=== PATIENT | female | born 1975 | race Caucasian/White ===

== ENCOUNTER 2019-03-14 08:42 | Observation (INO) ==
--- NOTE | 2019-03-14 09:07 | EKG Report ---
Test Performed on : 03/14/2019 09:06:20 AM Test Reason : dizziness Blood Pressure : / mmHG Vent. Rate : 050 BPM Atrial Rate : 050 BPM P-R Int : 154 ms QRS Dur : 090 ms QT Int : 438 ms P-R-T Axes : 043 026 017 degrees QTc Int : 399 ms Sinus bradycardia. Otherwise normal ECG When compared with ECG of 15-MAY-2018 09:29, Vent. rate has decreased BY [address] no longer depressed in Lateral leads Nonspecific T wave abnormality no longer evident in Lateral leads QT has shortened Unconfirmed Result
--- NOTE | 2019-03-14 09:21 | PROVIDER DOCUMENTATION ---
HPI-General Adult - General Chief Complaint: Dizziness Stated Complaint: DIZZINESS Time Seen by Provider: 03/14/19 08:49 Source: patient Allergies/Adverse Reactions: Patient Allergies Allergy/AdvReac Type Severity Reaction Status Date / Time No Known Allergies Allergy Verified 03/14/19 09:06 Home Medications: Home Medication List Medication Instructions Recorded Confirmed Last Taken Type Losartan Potassium 100 mg PO QAM 05/15/18 03/14/19 03/14/19 History Gabapentin 100 mg PO BID 03/14/19 03/14/19 03/14/19 History Hydrochlorothiazide 12.5 mg PO QAM 03/14/19 03/14/19 03/14/19 History Hydrocodone/Acetaminophen 7.5 mg PO TID 03/14/19 03/14/19 03/14/19 History [Hydrocodone-Acetamin 7.5-325] Metoprolol Succinate 25 mg PO QAM 03/14/19 03/14/19 03/13/19 History Tizanidine HCl 4 mg PO QHS 03/14/19 03/14/19 03/13/19 History - History of Present Illness -Gen Adult Nature of Presenting Problems: Pt. is 43 yof that presents with c/o sudden onset of dizziness and left arm tingling while at work. She reports all she did was sit down and suddenly got this feeling. She states she thought she was going to pass out. Pt. reports nausea but denies any vomiting. She states she also might have a thyroid problem. Location of Pain/Injury: reports: none. denies: head, face, mouth, neck, chest, upper extremity, hand(s), abdomen, back, pelvis, genitalia, lower extremity, fe et, upper body, lower body, generalized, other Pain Radiation: reports: no radiation. denies: arm(s), back, buttocks, chest, epigastric, feet, groin, jaw, flank (L), legs (lower), LLQ, LUQ, neck, periumbilical, flank (R), RLQ, RUQ, shoulder(s), scapula, scrotal, sternal not ch, suprapubic, legs (upper), urethral, vaginal, other Quality of Pain: reports: none. denies: aching, pressure, tightness Severity: reports: moderate. denies: mild, severe Onset/Duration: reports: abrupt, just prior to arrival Timing: reports: improving. denies: intermittent, constant, getting worse Context/Activities at Onset: reports: light activity. denies: none, moderate activity, vigorous activity, recent emotional stress, recent physical stress, recent trauma history, possible bad food, cold exposure, eating, out of country travel, rest, sleep, sexual activity, other Modifying Factors: improves with: nothing Associated Symptoms: reports: dizziness, nausea. denies: denies symptoms, anxiety, arm pain, back/neck pain, chest pain, constipation, cough, diaphoresis, diarrhea, EENT symptoms, fatigue, fever/chills, genitourinary problems, headaches, heartburn, joint pain, loss of appetite, malaise, muscle aches, sinus congestion/drainage, rash, seizure, shortness of breath, sensory/motor loss, pain with inspiration, swelling/mass in abdomen, syncope, vomiting, weakness, trouble walking, other Similar Symptoms Previously?: Yes Recently seen or treated by another doctor?: No Review of Systems - Adult - REVIEW OF SYSTEMS - ADULT Constitutional: reports: no symptoms reported Eyes: reports: see HPI, blurred vision. denies: dry eyes, double vision, redness Ears, Nose, Mouth & Throat: reports: no symptoms reported Cardiovascular: reports: no symptoms reported Respiratory: reports: no symptoms reported Gastrointestinal: reports: see HPI, nausea. denies: hematemesis, diarrhea, vomiting Genitourinary: reports: no symptoms reported Musculoskeletal: reports: no symptoms reported Integumentary: reports: no symptoms reported Neurological: reports: see HPI, dizziness/vertigo, paresthesia. denies: headache/migraines, slurred speech, tremors Psychiatric: reports: no symptoms reported Past History - Adult - PAST MEDICAL HISTORY-ADULT Review of Records: reports: Old Records Reviewed, Nursing Assessment Review, Medications Reviewed, Social history reviewed & non-contributory. Major Childhood Illnesses: reports: denies history Cardiovascular: reports: HTN Respiratory: reports: denies history Gastrointestinal: reports: denies history Obstetrical/Gynecological: reports: denies history Genitourinary: reports: denies history Musculoskeletal: reports: denies history Neurological: reports: denies history Psychiatric: reports: denies history Endocrine/Immune: reports: denies history Other Conditions: reports: denies history - PRIOR SURGERIES/PROCEDURES Surgical/Procedure History: reports: reviewed, not pertinent - IMMUNIZATION STATUS Childhood Immunizations: See Nurse Assessment Flu Vaccine: See Nurse Assessment - FAMILY HISTORY Family History: reviewed, not pertinent - SOCIAL HISTORY Smoking: cigarettes, less than 1 pack/day Provider spent 3-5 mins advising pt. on dangers of tobacco.: Discussed manners to quit use, and f/u contacts for add'l counseling. Physical Exam-General - PHYSICAL EXAM-ADULT Initial Vital Signs Reviewed: Yes - CONSTITUTIONAL General Appearance: alert, no apparent distress, anxious. negative: slow to respond, obtunded, combative - EYES Eyes: PERRL/EOMI, pink conjunctivae - HEAD, EARS, NOSE, MOUTH & THROAT HENMT: normocephalic/atraumatic, moist mucous membranes - NECK Neck: non-tender, full range of motion, supple, normal inspection - RESPIRATORY Respiratory: lungs clear, normal breath sounds - CARDIOVASCULAR Cardiovascular: normal peripheral pulses, regular rate, rhythm - GASTROINTESTINAL (ABDOMEN) Abdominal Exam: normal bowel sounds, non tender, soft - LYMPHATIC Lymphatic: no adenopathy - MUSCULOSKELETAL Back Exam: normal inspection, no CVA tenderness, no vertebral tenderness Extremity: normal range of motion, non-tender, normal inspection. negative: erythema, inflammation, swelling, tenderness Peripheral Pulses: radial (R): 2+, radial (L): 2+ - SKIN Integumentary: normal color, normal turgor, warm/dry - NEUROLOGIC Neurologic: grossly normal, no motor/sensory deficits. negative: aphasia, facial droop, focal weakness, motor weakness, sensory deficit - PSYCHIATRIC Psych/Mental Status: normal mood/affect, normal thought content, normal thought process, oriented x 3. negative: anxious, paranoid, tearful Progress - PLAN OF CARE/RESULTS Progress/Plan/Lab Results: Vital Signs - 8 hr 03/14/19 08:57 03/14/19 08:59 Temperature 97.8 F Pulse Rate 49 L Pulse Rate [Sitting] 59 L Pulse Rate [Standing] 57 L Pulse Rate [Supine] 51 L Respiratory Rate 20 Blood Pressure 129/73 Blood Pressure [Sitting] 146/72 Blood Pressure [Standing] 126/76 Blood Pressure [Supine] 122/59 O2 Sat by Pulse Oximetry 99 Orders Category Date Time Status Nursing- Obtain EKG ONCE Care 03/14/19 08:57 Active EKG [EKG] Stat Ther 03/14/19 08:57 Draft Laboratory Tests 03/14/19 03/14/19 03/14/19 09:51 09:51 09:59 WBC 21.02 H RBC 4.79 Hgb 14.7 Hct 43.1 MCV 90.0 MCH 30.7 MCHC 34.1 RDW Std Deviation 11.9 Plt Count 327 MPV 10.8 H Immature Gran % (Auto) 0.3 Neut % (Auto) 85.5 H Lymph % (Auto) 7.6 L Hodgeman % (Auto) 6.2 Eos % (Auto) 0.2 Baso % (Auto) 0.2 Immature Gran # (Auto) 0.07 H Neut # (Auto) 17.95 H Lymph # (Auto) 1.60 Hodgeman # (Auto) 1.31 H Eos # (Auto) 0.04 Baso # (Auto) 0.05 Sodium Potassium Chloride Carbon Dioxide Anion Gap BUN Creatinine Estimated GFR/1.73 m2 BUN/Creatinine Ratio Glucose Calculated Osmolality Calcium Total Bilirubin AST ALT Alkaline Phosphatase Creatine Kinase Troponin T Total Protein Albumin Globulin Albumin/Globulin Ratio TSH Urine Source CLEAN CATCH Urine Color YELLOW Urine Turbidity CLEAR Urine pH 6.0 Ur Specific [place] 1.018 Urine Protein NEGATIVE Ur Glucose (Stick) NEGATIVE Ur Ketones (Stick) NEGATIVE Urine Blood MODERATE A Urine Nitrite NEGATIVE Urine Bilirubin NEGATIVE Urobilinogen Dipstick NORMAL Urine Leukocytes NEGATIVE Urine WBC (Auto) <10 Urine RBC (Auto) <10 U Epithel Cells (Auto) <10 Urine Bacteria (Auto) NEGATIVE Urine Opiates Screen PRESUMPTIVE POSITIVE A Ur Oxycodone Screen NONE DETECTED Ur Methadone, Qual NONE DETECTED Ur Barbiturates Screen NONE DETECTED Ur Phencyclidine Scrn NONE DETECTED Ur Amphetamines Screen NONE DETECTED U Benzodiazepines Scrn NONE DETECTED Urine Cocaine Screen NONE DETECTED U Cannabinoids Screen NONE DETECTED 03/14/19 03/14/19 03/14/19 09:59 09:59 09:59 WBC RBC Hgb Hct MCV MCH MCHC RDW Std Deviation Plt Count MPV Immature Gran % (Auto) Neut % (Auto) Lymph % (Auto) Hodgeman % (Auto) Eos % (Auto) Baso % (Auto) Immature Gran # (Auto) Neut # (Auto) Lymph # (Auto) Hodgeman # (Auto) Eos # (Auto) Baso # (Auto) Sodium 137 Potassium 3.5 Chloride 96 L Carbon Dioxide 27 Anion Gap 14 BUN 20 Creatinine 1.1 H Estimated GFR/1.73 m2 55 BUN/Creatinine Ratio 18 Glucose 108 H Calculated Osmolality 277 Calcium 9.6 Total Bilirubin 0.50 AST 22 ALT 12 Alkaline Phosphatase 88 Creatine Kinase 35 Troponin T < 0.010 Total Protein 7.9 Albumin 4.8 Globulin 3.1 Albumin/Globulin Ratio 1.5 TSH 0.52 Urine Source Urine Color Urine Turbidity Urine pH Ur Specific [place] Urine Protein Ur Glucose (Stick) Ur Ketones (Stick) Urine Blood Urine Nitrite Urine Bilirubin Urobilinogen Dipstick Urine Leukocytes Urine WBC (Auto) Urine RBC (Auto) U Epithel Cells (Auto) Urine Bacteria (Auto) Urine Opiates Screen Ur Oxycodone Screen Ur Methadone, Qual Ur Barbiturates Screen Ur Phencyclidine Scrn Ur Amphetamines Screen U Benzodiazepines Scrn Urine Cocaine Screen U Cannabinoids Screen Pt. reports having a steroid shot one week ago. Discussed patient with Dr. Lomas and he states we should admit for a TIA workup. Discussed results and plan of care with patient. Patient agrees with plan and verbalizes understanding. Result Diagrams: 03/14/19 09:59 03/14/19 09:59 - EKG 1 Time of EKG reading by physician:: 09:08 EKG Read and Signed by:: Ted Lomas EKG Interpretation (*Must complete 3 of following elements*): Abnormal Rate: 50 Rhythm: Sinus Bradycardia QRS: normal [place] Interval: normal ST Wave: normal - XRAY 1 XRAY Study: Chest ([facility] - [address] [place] [address] [place] [phone] [facility] - [address] [place] [address] Department of Imaging Patient: CHRIS GARCIA Date: 03/14/19MR#: [id number] : 1975ADM Status: REG [facility]#: [id number] Age/Sex: 43/FRoom/Bed: Loc: ED Ordering Physician: Magdalena Herrera Family Physician: Sarmad Palafox MD Reason for Procedure: dizziness Signed EXAM: CHEST-2 VIEWS HISTORY: dizziness TECHNIQUE: Two views COMPARISON: 05/15/2018 FINDINGS: The lungs are well expanded. The heart is not enlarged. The vessels are not distended. There are no infiltrates. No pleural effusions. IMPRESSION: No acute abnormality. Electronically signed by Jadon Oliver 03/14/2019 10:29 AM 03/14/19 102 Interpreting Physician: Jadon Oliver MD Dictated Date/Time: 03/14/19 102 cc: Magdalena Herrera; Sarmad Palafox MD) XRAY Interpretation: See note - CT/MRI 1 CT Study: Head ([facility] - [address] [place] [address] [place] [phone] [facility] - [address] [place] [address] Department of Imaging Patient: CHRIS GARCIA Date: 03/14/19MR#: [id number] : 1975ADM [facility] ERAcct#: [id number] Age/Sex: 43/FRoom/Bed: Loc: ED Ordering Physician: Magdalena Herrera Family Physician: Sarmad Palafox MD Reason for Procedure: dizziness with left side numbness Signed EXAM: CT HEAD W/O CONTRAST HISTORY: dizziness with left side numbness TECHNIQUE: CT head without contrast COMPARISON: None. FINDINGS: No parenchymal hemorrhage. No epidural or subdural hematoma. No subarachnoid hemorrhage. No mass identified on this noncontrasted exam. No hydrocephalus. No sinus opacification. IMPRESSION: No hemorrhage. Negative brain CT without contrast. This exam was performed using automated exposure control, adjustment of mA or kV according to patient size, and/or use of iterative reconstruction technique. Electronically signed by Jadon Oliver 03/14/2019 10:32 AM 03/14/19 1032 Interpreting Physician: Jadon Oliver MD Dictated Date/Time: 03/14/19 1030 cc: Magdalena Herrera; Sarmad Palafox MD) CT Results: See note - CONSULTS/PCP/HOSPITALIST Notification #1 *Consult/PCP/Hospitalist*: Savanna Avalos Time Discussed: 11:21 Reason/Comments: Admission Consult Disposition: Will see in ED, Admit Departure - Departure Date of Disposition Decision: 03/14/19 Time of Disposition Decision: 11:06 DIAGNOSIS: TIA (transient ischemic attack) Disposition: ADMITTED INPATIENT 09 Certified Medical Emergency: Emergent Condition: Stable Referrals and Follow-Ups: Sarmad Palafox MD [Primary Care Provider] - - Critical Care Note This patient required my direct & personal management of CC.: No Attestation - Physician/ KIERSTEN Attestation Patient care was provided by Advanced Practice Provider:: Yes Advanced Practice Provider:: Magdalena Herrera Advanced Practice Provider documentation review:: The Mid-level provider documentation, treatment plan and medical decision making was reviewed by the physician who agrees with all treatment and medical decision making by the MLP. The physician spent face to face time with patient:: No Advanced Practice Provider documentation review:: Supervising physician onsite and consulted in the evaluation and care of this patient. The physician did not have a face to face encounter with the patient. - NIH Stroke Scale NIH Type: Initial Evaluation Level of Consciousness: 0-Alert LOC Questions (ask month and age): 0-Answers Both Correctly LOC Commands (ask to open & close eyes;make a fist, let go): 0-Obeys Both Correctly Best Gaze (horizontal eye movement): 0-Normal Visual (use finger movement, counting or visual threat): 0-No Visual Loss Facial Palsy (show teeth or raise eyebrows & close eyes tght: 0-Symmetrical Movement Motor Function-left arm: 0-Normal Motor Function-right arm: 0-Normal Motor Function-left le-Normal Motor Function-right le-Normal Limb Ataxia(zbfown-ojgv-gtgers, or heel to lopez): 0-No Ataxia Sensory(pin prick to face,arms,trunk,legs-compare side/side): 0-No Ataxia Best Language(name item/read sentence.Ex-Down to Earth): 0-No Aphasia Dysarthria(Pt read words or say words Ex.Mama,Tip-Top,Thanks: 0-Normal Articulation Extinction and Inattention: 0-Normal NIH Total Score: 0 Modified Tanisha Score Criteria: 0-no symptoms
[2019-03-14 09:58] LABS: URINE SOURCE CLEAN CATCH
[2019-03-14 10:17] LABS: BILIRUBIN URINE NEGATIVE (NEGATIVE); BLOOD URINE MODERATE (NEGATIVE); COLOR YELLOW; GLUCOSE URINE NEGATIVE (NEGATIVE); KETONE URINE NEGATIVE (NEGATIVE); LEUKOCYTES URINE NEGATIVE (NEGATIVE); NITRITE URINE NEGATIVE (NEGATIVE); PROTEIN URINE NEGATIVE (NEGATIVE); SP GRAVITY URINE 1.018; TURBIDITY URINE CLEAR (CLEAR); UROBILINOGEN URINE NORMAL (NORMAL)
[2019-03-14 10:18] LABS: UR EPITHELIAL CELLS <10 /HPF (<10); URINE BACTERIA NEGATIVE /HPF; URINE RBC <10 /HPF (<10); URINE WBC <10 /HPF (<10)
[2019-03-14 10:32] LABS: UR AMPHETAMINES QUAL NONE DETECTED (NONE DETECT); UR BARBITUATES QUAL NONE DETECTED (NONE DETECT); UR BENZODIAZEPIN QUAL NONE DETECTED (NONE DETECT); UR CANNABINOIDS QUAL NONE DETECTED (NONE DETECT); UR COCAINE QUAL NONE DETECTED (NONE DETECT); UR METHADONE QUAL NONE DETECTED (NONE DETECT); UR OPIATES QUAL PRESUMPTIVE POSITIVE (NONE DETECT); UR OXYCODONE QUAL NONE DETECTED (NONE DETECT); UR PCP QUAL NONE DETECTED (NONE DETECT)
--- NOTE | 2019-03-14 10:32 | Diag Imaging Result Doc PS360 ---
EXAM: CHEST-2 VIEWS HISTORY: dizziness TECHNIQUE: Two views COMPARISON: 05/15/2018 FINDINGS: The lungs are well expanded. The heart is not enlarged. The vessels are not distended. There are no infiltrates. No pleural effusions. IMPRESSION: No acute abnormality. Electronically signed by Jadon Oliver 03/14/2019 10:29 AM
--- NOTE | 2019-03-14 10:34 | Diag Imaging Result Doc PS360 ---
EXAM: CT HEAD W/O CONTRAST HISTORY: dizziness with left side numbness TECHNIQUE: CT head without contrast COMPARISON: None. FINDINGS: No parenchymal hemorrhage. No epidural or subdural hematoma. No subarachnoid hemorrhage. No mass identified on this noncontrasted exam. No hydrocephalus. No sinus opacification. IMPRESSION: No hemorrhage. Negative brain CT without contrast. This exam was performed using automated exposure control, adjustment of mA or kV according to patient size, and/or use of iterative reconstruction technique. Electronically signed by aJdon Oliver 03/14/2019 10:32 AM
[2019-03-14 10:40] LABS: BASO# 0.05 X1000 (0.0-0.2); BASO% 0.2 % (0.0-0.8); EOS# 0.04 X1000 (0.0-0.7); EOS% 0.2 % (0.0-10.0); HEMATOCRIT 43.1 % (37.0-47.0); HEMOGLOBIN 14.7 g/dL (12.0-16.0); IMM GRAN# 0.07 X1000 (0.0-0.04); IMM GRAN% 0.3 % (0.0-0.5); LYMPH% 7.6 % (20.5-51.1); MCH 30.7 PG (27-31); MCHC 34.1 g/dL (33-37); MONO# 1.31 X1000 (0.11-0.59); MONO% 6.2 % (1.7-9.3); MPV 10.8 FL (7.4-10.4); NEUT# 17.95 X1000 (1.4-6.5); NEUT% 85.5 % (42.2-75.2); PLT 327 X1000 (130-400); RBC 4.79 XMIL (4.2-5.4); RDW 11.9 % (11.5-14.5); WBC 21.02 X1000 (4.8-10.8)
[2019-03-14 10:52] LABS: ALB/GLOB RATIO 1.5; ALBUMIN 4.8 g/dL (3.5-5.0); CALCIUM 9.6 mg/dL (8.8-10.2); CREATININE 1.1 mg/dL (0.5-0.9); POTASSIUM 3.5 mmol/L (3.5-5.1); TOTAL BILIRUBIN 0.5 mg/dL (0.20-1.00); TOTAL PROTEIN 7.9 g/dL (6.3-8.3)
[2019-03-14] MEDS ORDERED: NS 1,000 ML IV ONE (11:01)
[2019-03-14] MEDS ORDERED: TYLENOL PO PRN (13:16)
[2019-03-14] MEDS ORDERED: ZOFRAN IV PRN (13:16)
[2019-03-14] MEDS: NORCO-7.5 PO SCH ×2 (14:29→16:46)
--- NOTE | 2019-03-14 15:00 | ECHO REPORT ---
ORDER DATE: 03/14/2019 INTERPRETING PHYSICIAN: Dr. Scar Painting. ECHOCARDIOGRAPHIC MEASUREMENTS: 1. Interventricular septum 0.9. 2. Left ventricular posterior wall 0.9. 3. Diastolic diameter 5.2. 4. Left atrium 3.7. 5. Aorta 2.7. SUMMARY OF THE 2-DIMENSIONAL IMAGIN. Aortic valve leaflets are trileaflet. 2. Mitral valve was normal. 3. Tricuspid valve was normal. 4. Pulmonic valve was normal. 5. Normal left ventricular cavity size. Estimated ejection fraction of 70% to 75%. 6. There is trace mitral regurgitation. 7. Peak velocity across the aortic valve less than 2 m/sec. There is no aortic stenosis or regurgitation. There is trace tricuspid regurgitation. 8. There is no pericardial effusion or obvious intracardiac mass or thrombus. cc: Scar Painting MD
--- NOTE | 2019-03-14 18:06 | HISTORY AND PHYSICAL ---
PRIMARY CARE PROVIDER: Dr. Palafox. CHIEF COMPLAINT: I felt like I was having a stroke. HISTORY OF PRESENT ILLNESS: Ms Sexton is a 43-year-old female, who carries a past medical history of hypertension, ruptured disk in the neck, tobacco use, who reported that she was sitting at her desk today at work. Her left hand shirley up. She felt dizzy. She felt like maybe her left leg was numb as well. This lasted maybe an hour so she decided to come to the ED to be evaluated. She also reported that over a month ago she had acupuncture, and since then, she felt like he had hit a nerve and has had ringing in her head since then, as well as some pain that will run down her left arm. Workup in the ED with a head CT was negative. EKG showed sinus bradycardia at 50 beats per minute. Chest x-ray was normal. We will admit her and continue with a full neurological workup. All symptoms seem to have resolved. She does not have any focal deficits. She does have a white count, but she has, I believe, recently been on steroids for her neck. PAST MEDICAL HISTORY: 1. Hypertension. 2. Ruptured disk in neck. 3. Tobacco use. PAST SURGICAL HISTORY: Left thyroidectomy. SOCIAL HISTORY: She smokes 3 cigarettes per day, has done so for the last 6 months. Prior to this she smoked for 10 years; however, she was not really forthcoming with how much she smoked during that 10 years. No alcohol or illicit drug use. FAMILY HISTORY: Father with diabetes. ALLERGIES: No known drug allergies. HOME MEDICATIONS: 1. Zanaflex 4 mg p.o. at bedtime. 2. Gabapentin 100 mg p.o. b.i.d. 3. Hydrochlorothiazide 12.5 mg p.o. q.a.m. 4. Cuero 7.5 mg p.o. t.i.d. 5. Losartan potassium 100 mg p.o. q.a.m. 6. Metoprolol 25 mg p.o. q.a.m. PHYSICAL EXAMINATION: VITAL SIGNS: Temperature is 97.8 degrees, heart rate 64, respirations 16, blood pressure 142/76, O2 is 100% on room air. GENERAL: Ms. Sexton is a pleasant 43-year-old female, who is sitting up in the bed in no acute distress. HEENT: Atraumatic, normocephalic. PERRL. NECK: Supple. Trachea midline. CARDIOVASCULAR: S1, S2 appreciated. No murmurs, gallops, or rubs noted. RESPIRATORY: Lung sounds clear bilaterally. GASTROINTESTINAL: Soft, nontender, nondistended. Positive bowel sounds 4 quadrants. EXTREMITIES: Lower extremities were negative for edema. NEUROLOGIC: No focal deficits noted. The patient did not have any slurred speech. Tongue was midline. Smile was symmetrical. She moved upper and lower extremities without any issues. DIAGNOSTIC DATA: Head CT: Negative brain CT. Chest x-ray: Normal. EKG: Sinus bradycardia. LABORATORY DATA: White count 21, hemoglobin 14, hematocrit 43, platelet count is 327,000. Sodium 137, potassium 3.5, BUN 20, creatinine 1.1, blood glucose is 108. Troponin less than 0.010. TSH was 0.52. Urinalysis is negative for bacteria. Toxicology screen was positive for opiates that she takes for her neck. ASSESSMENT AND PLAN: 1. Transient ischemic attack versus cerebrovascular accident versus cervical neck issues versus known cervical neck issues. We will rule out neurological issues first. Her head CT was negative. We will follow up with brain MRA, MRI, echocardiogram, carotid Dopplers. Check a lipid profile. Continue with neurological checks. Consult Neurology if warranted. We will allow for permissive hypertension 220/120 for 24 hours. 2. Known ruptured disk in the neck. We may need to do a cervical spine CT. 3. Tobacco use and abuse. The patient will need continued education on smoking cessation, as well as the means to quit. 4. Left lower lobe thyroidectomy. The patient is not on any Synthroid. I believe her TSH was 0.52. Further recommendation to follow physician evaluation and laboratory and diagnostic data. Dictated by LILLIAN Elizabeth for Almita Charlton MD cc: MD Sarmad Quezada MD I performed a face to face encounter on the patient. I reviewed all labs and imaging on the patient. I agree with the H&P as dictated. is a 43 year old female who presented with left sided weakness. On exam, the patient was noted to be alert and oriented x 4. Her breath sounds were clear to auscultation bilaterally. Her heart sounds were regular. Her neurological exam was unremarkable. The CT of the head was unremarkable. Will admit the patient and perform a stroke work up. Will also perform imaging of the patient's cervical spine. NELDA
--- NOTE | 2019-03-14 20:42 | CONSULTATION ---
DATE OF CONSULTATION: 03/14/2019 HISTORY OF PRESENT ILLNESS: Ms. Sexton is 43 years old and she had an episode of left arm numbness raising question of neurologic event. History from the patient is that she was at work and noted sudden onset of numbness and tingling involving the left arm. The left arm seemed weak and she reports she could not move her left arm. It remained flexed at the elbow with forearm against her chest. She does not recall fingers being flexed or extended. Vision might have been a little bit blurred globally, but she does not report focal vision change. She did not walk and did not notice weakness or numbness in the left leg. No one reported facial asymmetry to her. She does not believe speech was slurred. This was associated with a sense of dizziness, lightheadedness, "about to pass out" feeling. After the episode resolved, approximately an hour later, she developed moderate global headache and headache is now much improved. She reports she has not had these identical symptoms before. However, she has had some lightheadedness off and on in the last few weeks. For the last month or so, she has felt "just not myself." There had not been focal neurologic feature before this morning. HOME MEDICINES: List includes metoprolol 25 mg daily, losartan 100 mg daily, hydrochlorothiazide 12.5 mg daily, gabapentin 100 mg b.i.d., tizanidine 4 mg at bedtime, hydrocodone/acetaminophen 7.5/325 t.i.d. She reports taking tizanidine, gabapentin, hydrocodone regularly, no recent missed doses. These are managed in her [facility]. She reports no history of stroke, seizure, other neurologic event. LABORATORIES: Workup here includes lab showing WBC 21,000, blood sugar 116. Urine drug screen positive only for opiates. Urine negative for bacteria (she reports recently completing a course of an unnamed antibiotic prescribed for findings in her urine). Noncontrast CT of the head shows nothing remarkable. She believes echocardiogram and carotid ultrasound have been done and those reports are pending. VITAL SIGNS: She has been afebrile. Heart rate has ranged high 40s to low 60s. Systolic blood pressures have ranged 110s to 140s. PHYSICAL EXAMINATION: General: On exam, Ms. Sexton is awake, alert, attentive, appropriate, oriented. Speech is not dysarthric. Language function is intact. Recent and remote memory are good. Head and neck are unremarkable. Visual cannon are full tested by confrontational finger counting. Extraocular movements are full. Pupils react to light. Facial sensation and motility are normal and symmetric. Gag is intact. Tongue is midline. Hearing is good. Shoulder shrug is equal. Strength is normal in the arms and legs. There is no left arm pronator drift. Limb tone is symmetric on the left and right. She did well on [id number] testing bilaterally. She reports symmetric pinprick and light touch appreciation over the hands and over the feet. Proprioception is good at the second finger PIP joint bilaterally. Reflexes are 2+ at the wrists and 2+ at the ankles symmetrically. Plantar response is silent bilaterally. I did not test her gait. IMPRESSION: Transient left arm symptoms, which have resolved. There is no objective neurologic finding. Negative CT is reassuring. We need to get results of other workup. MRI is scheduled and she told me that she might not tolerate that. In light of her fairly benign course, spontaneous recovery, lack of neurologic deficit currently and her limited risk factors for cerebrovascular ischemic problem, if she prefers to wait and have outpatient MRI on a so-called "open" scanner, that would be okay from Neurology standpoint. Bradycardia noted. I encouraged her to take her medicines as directed and to keep followup with her other doctors. I do not have any other suggestion for neurology workup right now. Thanks for asking us to see Ms. Sexton. cc: MD NELDA Weems III
[2019-03-14] MEDS: NEURONTIN PO SCH (22:06)
[2019-03-14] MEDS: ZANAFLEX PO SCH (22:06)
[2019-03-14] MEDS: LIPITOR PO SCH (22:06)
[2019-03-15 07:34] LABS: HEMATOCRIT 38.7 % (37.0-47.0); HEMOGLOBIN 12.9 g/dL (12.0-16.0); MCH 30.9 PG (27-31); MCHC 33.3 g/dL (33-37); MCV 92.8 FL (81-99); MPV 11.2 FL (7.4-10.4); RBC 4.17 XMIL (4.2-5.4); RDW 12.3 % (11.5-14.5); WBC 8.48 X1000 (4.8-10.8)
[2019-03-15 07:57] LABS: AGAP 12; ALB/GLOB RATIO 1.5; ALKALINE PHOSPHATASE 76 U/L (32-104); BUN 19 mg/dL (8-22); CALCIUM 9.1 mg/dL (8.8-10.2); CHLORIDE 104 mmol/L (98-107); COSMO 290; CREATININE 0.9 mg/dL (0.5-0.9); ESTIMATED GFR > 60; GLUCOSE 108 mg/dL (70-104); GOT 18 U/L (10-30); GPT 9 U/L (10-36); POTASSIUM 3.8 mmol/L (3.5-5.1); SODIUM 144 mmol/L (136-145); TCO2 28 mmol/L (25-35); TOTAL BILIRUBIN 0.39 mg/dL (0.20-1.00); TOTAL PROTEIN 6.6 g/dL (6.3-8.3)
[2019-03-15] MEDS: NORCO-7.5 PO SCH ×4 (08:49→20:48)
[2019-03-15] MEDS: NEURONTIN PO SCH ×2 (08:49→20:22)
[2019-03-15] MEDS: ASPIRIN PO SCH (08:49)
[2019-03-15] MEDS ORDERED: NITROGLYCERIN SL ONE (09:43)
--- NOTE | 2019-03-15 10:12 | EKG Report ---
Test Performed on : 03/15/2019 09:59:34 AM Test Reason : chest pain Blood Pressure : / mmHG Vent. Rate : 068 BPM Atrial Rate : 068 BPM P-R Int : 136 ms QRS Dur : 080 ms QT Int : 438 ms P-R-T Axes : 036 022 025 degrees QTc Int : 465 ms Normal sinus rhythm. Normal ECG When compared with ECG of 14-MAR-2019 09:06, (Unconfirmed) QT has lengthened Unconfirmed Result
[2019-03-15] MEDS ORDERED: ATIVAN IV ONE (11:51)
--- NOTE | 2019-03-15 14:11 | PROGRESS NOTE ---
DATE: 03/15/2019 SUBJECTIVE: Ms. Sexton reports some mild tingling in the left arm, but nothing specific or prominent. She has not had any further episodes of inability to use her left arm. Echocardiogram report is noted. There was no source of embolus apparent. OBJECTIVE: On exam, she is awake, alert, and attentive. Speech is not dysarthric. She did well on [id number] testing bilaterally. She reports good pinprick appreciation over all aspects of both hands. She has good power in the arms and the intrinsic hand muscles on careful bedside testing. Limb tone is symmetric. Tinel's sign is minimally present over the median nerve at the wrist bilaterally. Hands are warm. Radial pulses are symmetric. IMPRESSION: No neurologic diagnosis. I do not think we need further workup from Neurology standpoint. I will be glad to see her again if needed. Thanks for asking Neurology to see Ms. Sexton. cc: MD NELDA Weems III
--- NOTE | 2019-03-15 14:16 | Diag Imaging Result Doc PS360 ---
EXAM: MRI BRAIN W/WO CONTRAST 03/14/2019 HISTORY: cva vs tia TECHNIQUE: T1 sagittal, axial and post gadolinium-enhanced axial with coronal reformation, T2, FLAIR, DWI axial and coronal gradient echo. COMMENT: There is no evidence of mass effect, bleed, or abnormal extra-axial fluid collection. There is no evidence of restricted diffusion. There is no evidence of abnormal gadolinium enhancement. No previous studies are available for comparison. IMPRESSION: Normal MRI of the brain. Electronically signed by Dev Dlea Cruz 03/15/2019 2:14 PM
--- NOTE | 2019-03-15 14:17 | Diag Imaging Result Doc PS360 ---
EXAM: MRA BRAIN W/O CONTRAST 03/14/2019 HISTORY: cva vs tia TECHNIQUE: 3-D [id number] COMMENT: There is no evidence of aneurysm or major branch occlusion. There is a relative possibility of visualization of the smaller vessels particularly in the right sylvian fissure. The possibility of small vessel disease cannot be excluded. IMPRESSION: No definite abnormality. Electronically signed by Dev Dela Cruz 03/15/2019 2:15 PM
--- NOTE | 2019-03-15 14:28 | Diag Imaging Result Doc PS360 ---
EXAM: MRI CERVICAL SPINE W/O CON 03/15/2019 HISTORY: radiculopathy TECHNIQUE: T1-T2 and STIR sagittal, T1 and T2 axial COMMENT: There is no evidence of abnormal signal intensity in the cord. There is no bony marrow edema. No intrathecal masses are present. At the C2-3 level, there is no spinal or foraminal stenosis. At the C3-4 level there is no spinal or foraminal stenosis. At the C4-5 level there is no evidence of spinal or foraminal stenosis. At the C5-6 level there is no spinal or foraminal stenosis. At C6-7 there is some disc bulge and slight narrowing of the left foramen. No spinal stenosis is present. At C7-T1 there is no spinal or foraminal stenosis. Note is made of a markedly heterogeneous right thyroid lobe. The left thyroid lobe is not identified. The trachea is displaced to the left. The left thyroid lobe measures 6.7 cm in superior-inferior dimension and is 4.5 cm in transverse dimension and 3.7 cm in anterior posterior dimension. IMPRESSION: Minimal left foraminal stenosis at C6-7. Enlargement of the right thyroid lobe. Electronically signed by Dev Dela Cruz 03/15/2019 2:26 PM
[2019-03-15] MEDS ORDERED: VITAMIN D PO SCH (15:30)
[2019-03-15] MEDS ORDERED: SOLU-MEDROL IV ONE (15:42)
--- NOTE | 2019-03-15 16:57 | Diag Imaging Result Doc PS360 ---
EXAM: US SOFT TISSUE HEAD/NECK 03/15/2019 HISTORY: goiter TECHNIQUE: Thyroid ultrasound COMMENT: There is a an enlarged and heterogeneous right thyroid lobe. The left lobe is surgically absent. There are really no discrete masses rather the entire gland is heterogeneously nodular in appearance. The lobe measures 7.7 x 4 x 3.1 cm. There are no apparent calcifications. There are no previous studies available for comparison. IMPRESSION: Status post left thyroidectomy. Markedly multinodular and enlarged right thyroid lobe. Electronically signed by Dev Dela Cruz 03/15/2019 4:55 PM
[2019-03-15] MEDS: LIPITOR PO SCH (20:22)
[2019-03-15] MEDS: ZANAFLEX PO SCH (20:22)
--- NOTE | 2019-03-15 21:56 | PROGRESS NOTE ---
DATE: 03/15/2019 SUBJECTIVE: The patient complains of left arm numbness and tingling and states that she just does not feel well overall. OBJECTIVE: Vital Signs: Temperature 98.1 degrees, blood pressure 129/66, heart rate 64, respirations 18, O2 saturation is 100% on room air. General: This is a middle-aged female lying in bed in no acute distress. Heart: S1, S2 normal. Regular rate and rhythm. Lungs: Clear to auscultation bilaterally. Abdomen: Positive bowel sounds. Soft, nontender, nondistended. Extremities: No edema no cyanosis. Neurologic: The patient is alert and oriented x4. No focal neurologic deficits noted. LABS: White blood cell count 8.4, hemoglobin 12, hematocrit 38, platelets 273,000. Sodium 144, potassium 3.8, BUN 19, creatinine 0.9, glucose 108. MRI of the brain was normal. MRA of the brain: No acute findings. MRI of the cervical spine reveals left foraminal stenosis at C6-C7 with some disk bulge. ASSESSMENT AND PLAN: 1. Left upper extremity numbness and tingling. The patient states that she has been suffering from this since she had an acupuncture treatment about a month ago. The patient also has a history of disk bulge on C6-C7 that showed up on the MRI done today. The patient has been followed by a neurosurgeon who recommends surgical intervention. However, the patient states that she wants to try noninvasive treatments first. The MRI was negative for stroke and the stroke workup overall was negative. 2. Tobacco dependence. The patient has been counseled about smoking cessation. 3. Vitamin D deficiency. We will start the patient on vitamin D replacement. 4. Hypertension. Continue on losartan. 5. Status post left thyroidectomy. The patient's TSH is normal. The ultrasound of the thyroid shows a multinodular right thyroid gland. 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 DISPOSITION: We will plan to discharge the patient home tomorrow. cc: Almita Charlton MD
--- NOTE | 2019-03-15 22:27 | Carotid Study ---
DATE: 03/14/2019 REAL ESTATE ANALYST: Nohemi REQUESTING PHYSICIAN: Ammon. INDICATIONS: CVA versus TIA with left-sided weakness. FINDINGS: The carotid arteries were visualized bilaterally. There is no significant atherosclerotic changes noted. Velocities remain in the 0 to 39% range. Vertebrals are antegrade bilaterally. There was right-sided thyroid nodules noted and would recommend dedicated thyroid imaging. SUMMARY: No hemodynamically significant lesion noted bilateral with antegrade vertebrals. cc: Juli Arnold MD
[2019-03-16 07:38] VITALS: BP 121/55
[2019-03-16 08:13] LABS: AGAP 15; BUN 15 mg/dL (8-22); CALCIUM 9.6 mg/dL (8.8-10.2); CHLORIDE 100 mmol/L (98-107); COSMO 281; CREATININE 0.9 mg/dL (0.5-0.9); ESTIMATED GFR > 60; GLUCOSE 108 mg/dL (70-104); POTASSIUM 3.5 mmol/L (3.5-5.1); SODIUM 140 mmol/L (136-145); TCO2 25 mmol/L (25-35)
[2019-03-16] MEDS: NORCO-7.5 PO SCH (10:05)
[2019-03-16] MEDS: ASPIRIN PO SCH (10:05)
[2019-03-16] MEDS: NEURONTIN PO SCH (10:05)
--- NOTE | 2019-03-26 11:24 | DISCHARGE SUMMARY ---
ADMISSION DATE: 03/14/2019 DISCHARGE DATE: 03/16/2019 FINAL DISCHARGE DIAGNOSES: 1. Left upper extremity numbness and tingling. 2. Tobacco dependence. 3. Vitamin D deficiency. 4. Hypertension. 5. Status post left thyroidectomy. CONSULTATIONS: Neurology consultation with Dr. Kang. HOSPITAL COURSE: Ms. Sexton is a 43-year-old female with a history of a left thyroidectomy and left foraminal stenosis at C6-C7, who presented to the ER with the chief complaint of left-sided weakness. Upon arrival to the ER, the patient was noted to have a blood pressure of 129/73. A head CT was done that was noted to be unremarkable. At the time of admission, the patient was complaining of neck pain which she stated was chronic. The patient was admitted to the hospitalist service to undergo a stroke workup. The patient admitted that she does smoke cigarettes. A brain MRI and MRA were performed, both of which were noted to be normal. The patient also had a carotid Doppler study done that was normal. The patient was seen by the neurologist for further recommendations. A cervical spine MRI was done that revealed foraminal stenosis involving C6-C7. The patient reports that she is followed by a neurosurgeon for this problem. The neurosurgeon at the time of her assessment recommended surgical intervention which the patient stated that she was not interested in at the time. The patient was seen by physical therapy who had no further recommendations since the patient was ambulatory. A vitamin D level was checked and noted to be low, so the patient was started on vitamin D replacement. The patient continued to improve clinically and was cleared for discharge home. DISCHARGE MEDICATIONS: 1. Vitamin D2 with 50,000 units oral every 7 days. 2. Gabapentin 100 mg oral twice a day. 3. Hydrochlorothiazide 12.5 mg oral every morning. 4. [place] 7.5/325 one tablet oral 3 times a day. 5. Losartan 100 mg p.o. every morning. 6. Toprol-XL 25 mg oral every morning. 7. Tizanidine 4 mg oral at bedtime. DISCHARGE DIET: Low-sodium, low-cholesterol diet. FOLLOWUP INSTRUCTIONS: The patient will need to follow up with Dr. Palafox on 03/21/2019 at 1:30 p.m. cc: Almita Charlton MD
== END 2019-03-16 12:31 | disposition home or self-care (01) ==
LOC: SUPCPDRO → ED 08:42 → INTOOBSV 08:43 → 3N 08:43
PROVIDERS: ATTEND Internal Medicine